=== PATIENT | female | born 1995 | race American Indian/Alaskan Native ===

== ENCOUNTER 2016-07-18 10:15 | Emergency (ER) | payer MEDICAID ==
[2016-07-18 10:29] VITALS: BP 133/70
[2016-07-18] MEDS ORDERED: NACL 0.9% 1000 ML 1,000 ML IV ONE (10:56)
[2016-07-18 11:12] LABS: Basophils % (Auto) 0.3 % (0.0-1.8); Eosinophils % (Auto) 0.7 % (0.0-4.3); Hematocrit 37.5 % (30.3-42.9); Mean Corpuscular HGB Conc 35 % (30-34); Mean Corpuscular Hemoglobin 33 pg (28-32); Mean Corpuscular Volume 94 fl (79-97); Platelet Count 148 K/mm3 (140-440); Red Blood Count 3.98 M/mm3 (3.65-5.03); Red Cell Distribution Width 13.1 % (13.2-15.2); White Blood Count 8.4 K/mm3 (4.5-11.0)
[2016-07-18] MEDS ORDERED: REGLAN IV ONE (11:26)
[2016-07-18] MEDS ORDERED: BENADRYL IV ONE (11:26)
[2016-07-18 11:29] LABS: Bacteria,Urine 3+ /HPF (Negative); Bilirubin,Urine NEG (Negative); Blood,Urine NEG (Negative); Ketones,Urine 20 mg/dL (Negative); Leukocyte Esterase,Urine MOD (Negative); Mucus,Urine 3+ /HPF; Nitrite,Urine NEG (Negative)
[2016-07-18 11:43] LABS: Anion Gap 18 mmol/L; BUN/Creatinine Ratio 16.66; Blood Urea Nitrogen 10 mg/dL (7-17); Carbon Dioxide 22 mmol/L (22-30); Chloride 100.7 mmol/L (98-107); Glucose 89 mg/dL (65-100); Potassium 4.1 mmol/L (3.6-5.0); Sodium 137 mmol/L (137-145)
[2016-07-18 11:47] LABS: Alanine Aminotransferase 13 units/L (7-56); Albumin 3.9 g/dL (3.9-5); Albumin/Globulin Ratio 1.3 %; Alkaline Phosphatase 48 units/L (35-129); Amylase 94 units/L (27-131); Lipase 31 units/L (13-60)
[2016-07-18 11:51] LABS: Bilirubin,Direct < 0.2 mg/dL (0-0.2)
--- NOTE | 2016-07-18 12:44 | Ultrasound Report ---
ULTRASOUND OB LESS THAN 14 WEEKS FETUS HISTORY: Abdominal pain during , cramping. FINDINGS: Transabdominal ultrasound imaging was performed. The uterus measures 17 x 8 x 13 cm. An intrauterine gestational sac containing a pole is identified. Heart rate measures 154 beats per minutes. [place]-rump length measures 76.5 mm which correlates with a 13 week 5 day . Estimated due date of 01/18/17. The placenta is forming anteriorly. No subplacental collection or previa is appreciated. Amniotic fluid volume appears within normal limits. The ovaries are normal size, contour and echotexture. No adnexal cyst or mass. No pelvic fluid collection. Impression: Viable, single intrauterine dated at 13 weeks 5 days. No acute abnormality is detected.
--- NOTE | 2016-07-18 23:20 | Emergency Department Report ---
Entered by EDER AMES, acting as scribe for JAN MOYER PA. ED N/V/D HPI - General Chief complaint: Nausea/Vomiting/Diarrhea Stated complaint: VOMITING/13WKS PREG Time Seen by Provider: 07/18/16 11:19 Source: patient Mode of arrival: Ambulatory Limitations: No Limitations - History of Present Illness Initial comments: 21 year old female that is 13 weeks with no significant PMHx presents to the ED c/o nausea and vomiting that began 2 days ago. Associated symptoms include not being able to tolerate PO food/fluid intake and intermittent lower abdominal cramping, but she denies vaginal discharge, dysuria, and vaginal bleeding. Notes that her last vomiting episode was this morning. She states she consumed water after the episode and vomited the water up as well. Denies having similar symptoms with previous pregnancies. She was seen at [facility] recently and given Phenergan pills for nausea, which she took with no relief. She states she vomited the pills up as well. Notes she had an ultrasound done 1 month ago, which was normal. She states she is high risk due to having previous premature births. LMP 04/18/2016. A2. Denies any alcohol , tobacco, or drug use. NKDA. ALDRIDGE complaint: nausea, vomiting Onset/Timin -: days(s) Description of Vomiting: food contents, watery Associated Abdominal Pain: Yes (intermittent cramping abdominal pain) Location: LLQ, RLQ Radiation: none Severity: moderate Quality: cramping (lower cramping abdominal pain) Consistency: constant Improves with: none (took Phenergan pills with no relief) Worsens with: none Context: other (currently 13 weeks ) Associated Symptoms: denies other symptoms, nausea/vomiting, other ( intermittent lower abdominal cramping pain, but denies vaginal discharge and vaginal bleeding). denies: fever/chills, dysuria - Related Data Home Medications Medication Instructions Recorded Confirmed Last Taken Promethazine [Phenergan TAB] 25 mg PO Q6HR PRN 07/18/16 07/18/16 Unknown Previous Rx's Medication Instructions Recorded Last Taken Type Metoclopramide HCl [Reglan TAB] 5 mg PO Q8H PRN #12 tablet 07/18/16 Unknown Rx Pyridoxine HCl 25 mg PO Q8H PRN #1 bottle 07/18/16 Unknown Rx Allergies Allergy/AdvReac Type Severity Reaction Status Date / Time No Known Allergies Allergy Unverified 07/18/16 10:24 ED Review of Systems Comment: All other systems reviewed and negative Constitutional: no symptoms reported. denies: chills, fever Eyes: denies: eye pain, eye discharge, vision change ENT: denies: ear pain, throat pain Respiratory: denies: cough, shortness of breath, wheezing Cardiovascular: denies: chest pain, palpitations Endocrine: no symptoms reported Gastrointestinal: abdominal pain (intermittent lower abdominal cramping pain), nausea, vomiting. denies: diarrhea Genitourinary: denies: urgency, dysuria, discharge, other (vaginal bleeding) Musculoskeletal: denies: back pain, joint swelling, arthralgia Skin: denies: rash, lesions Neurological: denies: headache, weakness, paresthesias Psychiatric: denies: anxiety, depression Hematological/Lymphatic: denies: easy bleeding, easy bruising ED Past Medical Hx - Past Medical History Previous Medical History?: Yes Additional medical history: vaginal delivery - Surgical History Past Surgical History?: No - Social History Smoking Status: Former Smoker Substance Use Type: Prescribed - Medications Home Medications: Home Medications Medication Instructions Recorded Confirmed Last Taken Type Metoclopramide HCl [Reglan TAB] 5 mg PO Q8H PRN #12 tablet 07/18/16 Unknown Rx Promethazine [Phenergan TAB] 25 mg PO Q6HR PRN 07/18/16 07/18/16 Unknown History Pyridoxine HCl 25 mg PO Q8H PRN #1 bottle 07/18/16 Unknown Rx ED Physical Exam - General Limitations: No Limitations General appearance: alert, in no apparent distress - Head Head exam: Present: atraumatic, normocephalic - Eye Eye exam: Present: normal appearance, EOMI Pupils: Present: normal accommodation - ENT ENT exam: Present: normal exam, mucous membranes moist - Neck Neck exam: Present: normal inspection, full ROM. Absent: tenderness, meningismus, lymphadenopathy - Respiratory Respiratory exam: Present: normal lung sounds bilaterally. Absent: respiratory distress, wheezes, rales, rhonchi, stridor - Cardiovascular Cardiovascular Exam: Present: regular rate, normal rhythm, normal heart sounds - GI/Abdominal GI/Abdominal exam: Present: soft, distended (gravid abdomen), tenderness (LLQ and RLQ), normal bowel sounds. Absent: guarding, rebound, rigid - Extremities Exam Extremities exam: Present: normal inspection, full ROM - Back Exam Back exam: Present: normal inspection, full ROM. Absent: tenderness - Neurological Exam Neurological exam: Present: alert, oriented X3 - Psychiatric Psychiatric exam: Present: normal affect, normal mood - Skin Skin exam: Present: warm, dry, intact. Absent: rash ED Course Vital Signs 07/18/16 10:25 Temperature 98.3 F Pulse Rate 84 Respiratory 20 Rate Blood Pressure 133/70 O2 Sat by Pulse 99 Oximetry ED Medical Decision Making - Lab Data Result diagrams: 07/18/16 10:48 07/18/16 10:48 - Medical Decision Making a/p: nausea and vomiting associated with 1- pt experienced significant relief with reglan, not tolerating po fluid and food without difficulty. 2- pt to f/u with OBGYN 3- rH negative but pt has no current vaginal bleeding, US showed live IUP ED Disposition Clinical Impression: Nausea & vomiting Qualifiers: Vomiting type: unspecified Vomiting Intractability: non-intractable Qualified Code(s): R11.2 - Nausea with vomiting, unspecified Qualifiers: Weeks of gestation: 13 weeks Qualified Code(s): Z3A.13 - 13 weeks gestation of Disposition: DISCHARGED TO HOME OR SELFCARE Is pt being admited?: No Does the pt Need Aspirin: No Condition: Stable Instructions: Morning Sickness (ED), Acute Nausea and Vomiting (ED) Prescriptions: Metoclopramide HCl [Reglan TAB] 5 mg PO Q8H PRN #12 tablet PRN Reason: Nausea Pyridoxine HCl 25 mg PO Q8H PRN #1 bottle PRN Reason: Nausea Referrals: [facility] [Provider Group] - 3-5 Days Time of Disposition: 14:10 This documentation as recorded by the HUI waite JASMINE,accurately reflects the service I personally performed and the decisions made by me,JAN MOYER, PA.
== END 2016-07-18 14:47 | disposition home or self-care (01) ==
LOC: ED 10:15
DX: O21.9 Vomiting of pregnancy, unspecified (principal); R11.0 Nausea; Z3A.13 13 weeks gestation of pregnancy; Z87.891 Personal history of nicotine dependence
CPT/HCPCS: 36415; 76801; 80048; 80074; 81001; 82010; 82150; 82962; 83690; 84600; 84702; 85025; 86850; 86900; 86901; 96361; 96374; 96375; 99284; J1200; J2765; J7030

== ENCOUNTER 2016-11-10 13:23 | Outpatient (CLI) | payer MEDICAID ==
[2016-11-10] MEDS ORDERED: LACTATED RINGERS 500 ML IV ONE (13:27)
[2016-11-10 14:11] VITALS: BP 122/59
[2016-11-10] MEDS ORDERED: BRETHINE SUB-Q ONE (17:00)
== END 2016-11-10 17:45 | disposition home or self-care (01) ==
LOC: TRG 13:23
PROVIDERS: ATTEND Obstetrics & Gynecology
DX: O47.03 False labor before 37 completed weeks of gestation, third trimester (principal); Z3A.29 29 weeks gestation of pregnancy
CPT/HCPCS: 36415; 59025; 82731; 96360; 96372; J3105; J7120

== ENCOUNTER 2016-11-19 15:05 | Emergency (ER) | payer MEDICAID ==
[2016-11-19 15:46] VITALS: BP 130/64
--- NOTE | 2016-11-19 18:40 | Emergency Department Report ---
Chief Complaint: Medical Clearance Stated Complaint: rhogam shot - HPI History of Present Illness: 21-year-old female presents with order for RhoGAM from [facility] [employer] [facility] doctor Jan AKHTAR Review of Systems: Recent - Exam Vital Signs: Vital Signs 11/19/16 15:41 Temperature 9804 F H Pulse Rate 81 Respiratory 16 Rate Blood Pressure 130/64 O2 Sat by Pulse 100 Oximetry Physical Exam: Heart S1-S2 lungs clear to auscultation MSE screening note: Focused history and physical exam performed. Due to findings the following was ordered: Screening Assessment/Plan/Differential Dx: RhoGAM assessment 1- This initial assessment/diagnostic orders/clinical plan/ treatment(s) is/are subject to change based on pt's health status, clinical progression and re- assessment by fellow clinical providers in the ED. Further treatment and workup at subsequent clinical provers discretion. Patient/guardians urged not to elope from ED as their condition may be serious if not clinically assessed and managed. 2-RhoGAM assessment ordered ED Disposition for MSE Condition: Stable Referrals: PRIMARY CARE, [Primary Care Provider] - 3-5 Days
--- NOTE | 2016-11-19 19:57 | Emergency Department Report ---
ED General Adult HPI - General Chief complaint: Medical Clearance Stated complaint: rhogam shot Time Seen by Provider: 11/19/16 19:47 Source: patient Mode of arrival: Ambulatory Limitations: No Limitations - History of Present Illness Initial comments: This is a 21-year-old female nontoxic, well nourished in appearance, no acute signs of distress was inserted to return to emergency room by her [facility] doctor Krupa Montoya for a RhoGAM 300 mcg to be administered. Patient stated she is 30 weeks with normal . Patient was prescribed received a prescription by Dr. Krupa Montoya and indicates "patient is 29 weeks and Rh-. Please of . DaxAM [address] Montoya with questions". Patient denies any vaginal bleeding, fever, chills, nausea, vomiting, chest pain or shortness of breath. Patient denies any symptoms. Denies past medical history or any allergies. MD Complaint: Rh Negative Radiation: non-radiation Severity scale (0 -10): 0 Worsens with: none Associated Symptoms: denies other symptoms. denies: confusion, chest pain, cough, diaphoresis, fever/chills, headaches, loss of appetite, malaise, nausea/ vomiting, rash, seizure, shortness of breath, syncope, weakness Treatments Prior to Arrival: none - Related Data Home Medications Medication Instructions Recorded Confirmed Last Taken Promethazine [Phenergan TAB] 25 mg PO Q6HR PRN 07/18/16 07/18/16 Unknown Previous Rx's Medication Instructions Recorded Last Taken Type Metoclopramide HCl [Reglan TAB] 5 mg PO Q8H PRN #12 tablet 07/18/16 Unknown Rx Pyridoxine HCl 25 mg PO Q8H PRN #1 bottle 07/18/16 Unknown Rx Allergies Allergy/AdvReac Type Severity Reaction Status Date / Time No Known Allergies Allergy Unverified 07/18/16 10:24 ED Review of Systems ROS: Stated complaint: rhogam shot Other details as noted in HPI Constitutional: denies: chills, fever Eyes: denies: eye pain, eye discharge, vision change ENT: denies: ear pain, throat pain Respiratory: denies: cough, shortness of breath, wheezing Cardiovascular: denies: chest pain, palpitations Endocrine: no symptoms reported Gastrointestinal: denies: abdominal pain, nausea, diarrhea Genitourinary: denies: urgency, dysuria, discharge Musculoskeletal: denies: back pain, joint swelling, arthralgia Skin: denies: rash, lesions Neurological: denies: headache, weakness, paresthesias Psychiatric: denies: anxiety, depression Hematological/Lymphatic: denies: easy bleeding, easy bruising ED Past Medical Hx - Past Medical History Hx Hypertension: No Hx Diabetes: No Hx Deep Vein Thrombosis: No Hx Renal Disease: No Hx Sickle Cell Disease: No Hx Seizures: No Hx Asthma: No Hx HIV: No Additional medical history: vaginal delivery - Surgical History Past Surgical History?: No - Social History Smoking Status: Never Smoker Substance Use Type: None - Medications Home Medications: Home Medications Medication Instructions Recorded Confirmed Last Taken Type Metoclopramide HCl [Reglan TAB] 5 mg PO Q8H PRN #12 tablet 07/18/16 Unknown Rx Promethazine [Phenergan TAB] 25 mg PO Q6HR PRN 07/18/16 07/18/16 Unknown History Pyridoxine HCl 25 mg PO Q8H PRN #1 bottle 07/18/16 Unknown Rx ED Physical Exam - General Limitations: No Limitations General appearance: alert, in no apparent distress - Head Head exam: Present: atraumatic, normocephalic, normal inspection - Eye Eye exam: Present: normal appearance, PERRL, EOMI. Absent: scleral icterus, conjunctival injection, nystagmus, periorbital swelling, periorbital tenderness Pupils: Present: normal accommodation - ENT ENT exam: Present: normal exam, normal orophraynx, mucous membranes moist, TM's normal bilaterally, normal external ear exam - Neck Neck exam: Present: normal inspection, full ROM. Absent: tenderness, meningismus, lymphadenopathy, thyromegaly - Respiratory Respiratory exam: Present: normal lung sounds bilaterally. Absent: respiratory distress, wheezes, rales, rhonchi, stridor, chest wall tenderness, accessory muscle use, decreased breath sounds, prolonged expiratory - Cardiovascular Cardiovascular Exam: Present: regular rate, normal rhythm, normal heart sounds. Absent: bradycardia, tachycardia, irregular rhythm, systolic murmur, diastolic murmur, rubs, gallop - GI/Abdominal GI/Abdominal exam: Present: soft, normal bowel sounds - Rectal Rectal exam: Present: deferred - Extremities Exam Extremities exam: Present: normal inspection, full ROM, normal capillary refill. Absent: tenderness, pedal edema, joint swelling, calf tenderness - Back Exam Back exam: Present: normal inspection, full ROM. Absent: tenderness, CVA tenderness (R), CVA tenderness (L), muscle spasm, paraspinal tenderness, vertebral tenderness, rash noted - Neurological Exam Neurological exam: Present: alert, oriented X3, CN II-XII intact, normal gait, reflexes normal - Psychiatric Psychiatric exam: Present: normal affect, normal mood - Skin Skin exam: Present: warm, dry, intact, normal color. Absent: rash ED Course Vital Signs 11/19/16 15:41 Temperature 9804 F H Pulse Rate 81 Respiratory 16 Rate Blood Pressure 130/64 O2 Sat by Pulse 100 Oximetry - Reevaluation(s) Reevaluation #1: 11/19/16 19:56 Patient is speaking in full sentences with no signs of distress noted. ED Medical Decision Making - Medical Decision Making Patient has a prescription by Dr. Andres Montoya and indicates that patient needs RhoGAM 300 g to be administered. Prescription is from the 11/08/2016 and patient states she did not have a ride but does arrive today and so she came in today. Patient denies any symptoms. Blood type has been obtaining ED that indicates patient is Rh-. Critical care attestation.: If time is entered above; I have spent that time in minutes in the direct care of this critically ill patient, excluding procedure time. ED Disposition Clinical Impression: Rh negative status during Qualifiers: Trimester: third trimester Qualified Code(s): O09.893 - Supervision of other high risk pregnancies, third trimester Disposition: DC-01 TO HOME OR SELFCARE Is pt being admited?: No Does the pt Need Aspirin: No Condition: Stable Instructions: Rho(D) Immune Globulin (Injection) Additional Instructions: Follow-up with your [facility] in 3-5 days or if symptoms worsen and continue return to emergency room as soon as possible possible. Referrals: PRIMARY CARE,MD [Primary Care Provider] - 3-5 Days
== END 2016-11-19 20:32 | disposition home or self-care (01) ==
LOC: ED 15:05
DX: O09.893 Supervision of other high risk pregnancies, third trimester (principal); Z3A.30 30 weeks gestation of pregnancy
CPT/HCPCS: 85461; 86850; 86900; 86901; 99282; J2790

== ENCOUNTER 2016-11-27 09:13 | Outpatient (CLI) | payer MEDICAID ==
[2016-11-27] MEDS ORDERED: CELESTONE SOLUSPAN IM ONE (10:30)
== END 2016-11-27 10:30 | disposition home or self-care (01) ==
LOC: TRG 09:13
PROVIDERS: ATTEND Obstetrics & Gynecology
DX: O47.03 False labor before 37 completed weeks of gestation, third trimester (principal); Z3A.31 31 weeks gestation of pregnancy
CPT/HCPCS: 96372; J0702

== ENCOUNTER 2016-11-28 10:44 | Outpatient (CLI) | payer MEDICAID ==
[2016-11-28] MEDS ORDERED: CELESTONE SOLUSPAN IM ONE (11:45)
[2016-11-30 08:56] VITALS: BP 109/53
== END 2016-11-28 11:37 | disposition home or self-care (01) ==
LOC: TRG 10:44
PROVIDERS: ATTEND Obstetrics & Gynecology
DX: O47.03 False labor before 37 completed weeks of gestation, third trimester (principal); Z3A.32 32 weeks gestation of pregnancy
CPT/HCPCS: 96372; J0702

== ENCOUNTER 2016-11-29 12:47 | Inpatient (IN) | payer MEDICAID ==
[2016-11-29] MEDS ORDERED: LACTATED RINGERS 500 ML IV ONE (14:39)
[2016-11-29] MEDS ORDERED: CALCIUM GLUCONATE IV ONE (14:41)
[2016-11-29] MEDS ORDERED: MAGNESIUM SULFATE 4GM/100ML 4 GM/100 ML BAG IV ONE (14:41)
[2016-11-29] MEDS ORDERED: BRETHINE SUB-Q SCH (15:00)
[2016-11-29] MEDS ORDERED: MAGNESIUM SULFATE 40GM/1000ML 40 GM/1,000 ML BAG IV SCH (15:00)
[2016-11-29] MEDS: LACTATED RINGERS 1,000 ML IV SCH (15:50)
[2016-11-29 16:13] LABS: Hematocrit 32.8 % (30.3-42.9); Hemoglobin 11.1 gm/dl (10.1-14.3); Mean Corpuscular HGB Conc 34 % (30-34); Mean Corpuscular Hemoglobin 33 pg (28-32); Mean Corpuscular Volume 98 fl (79-97); Platelet Count 126 K/mm3 (140-440); Red Blood Count 3.33 M/mm3 (3.65-5.03); Red Cell Distribution Width 12.9 % (13.2-15.2)
--- NOTE | 2016-11-29 20:03 | History and Physical Report ---
History of Present Illness Date of examination: 11/29/16 Date of admission: 11/29/16 14:01 Chief complaint: contractions History of present illness: Pt is a 21 year old -[place] female KUSH 01/23/17 at 32w1d who presents with contractions for the past two days increasing in frequency and intensity. She presented to the office with these complaints and was checked and found to be 3/50/-3. She denies vaginal bleeding or leakage of fluid. She has had care at [facility] since 8 wks complicated by h/o at 32 wks, pt refused weekly progesterone injections, contractions on procardia 10 mg TID since 11/08/13; fibronectin on 11/22/16 positive, RH negative status s/p Rhogam, s/p two doses of betamethasone this week on 11/27 and 11/28; GERD on no meds (pt refused), Bilateral pylectasis of the fetus, thrombocytopenia and macrocytosis s/p Hematology referral on . She is GBS unknown. Past History Past Medical History: no pertinent history Past Surgical History: no surgical history [employer] History: chlamydia (remote from this , treated ) Family/Genetic History: diabetes, cancer Social history: no significant social history - Obstetrical History Expected Date of Delivery: 01/23/17 Actual Gestation: 32 Week(s) 1 Day(s) : 5 Para: 2 Hx # Term Pregnancies: 1 Number of Pregnancies: 1 Spontaneous Abortions: 0 Induced : 2 Number of Living Children: 2 Medications and Allergies Allergies Allergy/AdvReac Type Severity Reaction Status Date / Time No Known Allergies Allergy Verified 11/29/16 15:36 Home Medications Medication Instructions Recorded Confirmed Last Taken Type Metoclopramide HCl [Reglan TAB] 5 mg PO Q8H PRN #12 tablet 07/18/16 Unknown Rx Promethazine [Phenergan TAB] 25 mg PO Q6HR PRN 07/18/16 07/18/16 Unknown History Pyridoxine HCl (Vitamin B6) 25 mg PO Q8H PRN #1 bottle 07/18/16 Unknown Rx [Pyridoxine HCl] Active Meds: Active Medications Lactated Ringer's (Lactated Ringers) 1,000 mls @ 125 mls/hr IV DIRECT CINTHYA Last Admin: 11/29/16 15:50 Dose: 125 mls/hr Magnesium Sulfate (Magnesium Sulfate 40gm/1000ml) 40 gm in 1,000 mls @ 25 mls/ hr IV TITR CINTHYA PRN Reason: 1 GM/HR Stop: 11/30/16 14:59 Last Admin: 11/29/16 15:52 Dose: 1 gm/hr, 25 mls/hr Terbutaline Sulfate (Brethine) 0.25 mg SUB-Q Q20MIN CINTHYA Stop: 11/29/16 23:59 Review of Systems All systems: negative - Vital Signs Vital signs: Vital Signs Temp Pulse BP 97.1 F L 77 105/55 11/29/16 14:56 11/29/16 14:56 11/29/16 14:56 Temp Pulse Resp BP Pulse Ox 97.1 F L 70 122/59 97 11/29/16 14:56 11/29/16 20:05 11/29/16 19:58 11/29/16 20:05 - Physical Exam Breasts: Positive: deferred Cardiovascular: Regular rate Lungs: Positive: Clear to auscultation Abdomen: Positive: soft (gravid ) Genitourinary (Female): Positive: normal external genitalia Uterus: Positive: enlarged (gravid ) Extremities: Positive: normal - Obstetrical FHR: auscultation normal Uterine Contraction Monitor Mode: External Cervical Dilatation: 3 (in office) Cervical Effacement Percentage: 50 station: -3 Uterine Contraction Pattern: Irregular Uterine Tone Measurement Phase: Resting Uterine Contraction Intensity: Mild Results Result Diagrams: 11/29/16 15:18 Abnormal lab results 11/29/16 Range/Units 15:18 WBC 18.0 H (4.5-11.0) K/mm3 RBC 3.33 L (3.65-5.03) M/mm3 MCV 98 H (79-97) fl MCH 33 H (28-32) pg RDW 12.9 L (13.2-15.2) % Plt Count 126 L (140-440) K/mm3 Lymph % (Auto) 7.5 L (13.4-35.0) % Weber # 1.1 H (0.0-0.8) K/mm3 Seg Neutrophils % 86.3 H (40.0-70.0) % Seg Neutrophils # 15.6 H (1.8-7.7) K/mm3 All other labs normal. Assessment and Plan A: IUP at 32w1d s/p 2 doses of bemethasone on 11/27 and 11/28 labor bilateral pyelectasis Rh Negative s/p Rhogam Thrombocytopenia GBS unknown P: Admit to antepartum service Magnesium tocolysis CBC, type and screen Closely monitor maternal and status.
[2016-11-29] MEDS ORDERED: COLACE PO PRN (21:29)
[2016-11-29] MEDS ORDERED: ALUM-MAG HYDROX-SIMETH 200-200-20MG/5ML PO PRN (21:29)
[2016-11-29] MEDS ORDERED: MILK OF MAGNESIA PO PRN (21:29)
[2016-11-29] MEDS ORDERED: ROBITUSSIN DM PO PRN (21:29)
[2016-11-29] MEDS ORDERED: DEEP SEA NS PRN (21:29)
[2016-11-29] MEDS ORDERED: ZOFRAN IV PRN (21:29)
[2016-11-29] MEDS ORDERED: BENADRYL PO PRN (21:29)
[2016-11-29] MEDS ORDERED: AMBIEN PO PRN (21:29)
[2016-11-29] MEDS ORDERED: POLYCILLIN/NS 2 GM/100 ML 2 GM/100 ML BAG IV ONE (21:29)
[2016-11-29] MEDS ORDERED: TYLENOL PO PRN (21:29)
[2016-11-29 21:50] LABS: Bilirubin,Urine NEG (Negative); Blood,Urine NEG (Negative); Ketones,Urine 20 mg/dL (Negative); Leukocyte Esterase,Urine NEG (Negative); Mucus,Urine 1+ /HPF; Nitrite,Urine NEG (Negative); Protein,Urine <15 mg/dL mg/dL (Negative)
[2016-11-30] MEDS: LACTATED RINGERS 1,000 ML IV SCH ×2 (00:10→10:33)
[2016-11-30] MEDS ORDERED: POLYCILLIN/NS 2 GM/100 ML 2 GM/100 ML BAG IV ONE (00:34)
[2016-11-30] MEDS: POLYCILLIN/NS 1 GM/50 ML 1 GM/50 ML BAG IV SCH ×5 (05:11→21:19)
[2016-11-30] MEDS: PRENATAL VITAMIN PO SCH (10:15)
--- NOTE | 2016-11-30 10:38 | Consultation ---
History of Present Illness Reason for consult: contractions (Pt is a 21 year old -Pakistani female KUSH 01/23/17 at 32w2d . Patient follow ed by YOGESH for history of PTD , EIF, and VSD ( confirmed by Stefani ) She presented to her OB office for routine OB appt with reports of CTX and pelvic pressure SVE /3. She has had care at [facility] since 8 wks complicated by History PTD following PTL at 32 wks, pt refused weekly progesterone injections, contractions on procardia 10 mg TID since ; fibronectin on 11/22/16 positive, RH negative status s/p Rhogam, s/p two doses of BMZ this week on 11/27 and 11/28; . She is GBS unknown. Patient reports ctx have improved ( irregular and not as strong). Patient denies LOF, ABD, regular cvtx, and VB . 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 (remote from this , treated ) Family/Genetic History: diabetes, cancer - Obstetrical History : 5 Medications and Allergies Allergies Allergy/AdvReac Type Severity Reaction Status Date / Time No Known Allergies Allergy Verified 11/29/16 15:36 Home Medications Medication Instructions Recorded Confirmed Last Taken Type Metoclopramide HCl [Reglan TAB] 5 mg PO Q8H PRN #12 tablet 07/18/16 Unknown Rx Promethazine [Phenergan TAB] 25 mg PO Q6HR PRN 07/18/16 07/18/16 Unknown History Pyridoxine HCl (Vitamin B6) 25 mg PO Q8H PRN #1 bottle 07/18/16 Unknown Rx [Pyridoxine HCl] Active Meds: Active Medications Acetaminophen (Tylenol) 650 mg PO Q4H PRN PRN Reason: Pain MILD(1-3)/Fever >100.5/GUERRERO Al Hydrox/Mg Hydrox/Simethicone (Alum-Mag Hydrox-Simeth [id number]/5ml) 30 ml PO Q6H PRN PRN Reason: Indigestion Diphenhydramine HCl (Benadryl) 25 mg PO Q6H PRN PRN Reason: Itching Docusate Sodium (Colace) 100 mg PO Q12H PRN PRN Reason: Constipation Guaifenesin (Robitussin Dm) 10 ml PO Q6H PRN PRN Reason: Cough Lactated Ringer's (Lactated Ringers) 1,000 mls @ 125 mls/hr IV DIRECT [facility] Last Admin: 11/30/16 00:10 Dose: 125 mls/hr Magnesium Sulfate (Magnesium Sulfate 40gm/1000ml) 40 gm in 1,000 mls @ 25 mls/ hr IV TITR [facility] PRN Reason: 1 GM/HR Stop: 11/30/16 14:59 Last Admin: 11/29/16 15:52 Dose: 1 gm/hr, 25 mls/hr Ampicillin Sodium (Polycillin/Ns 1 Gm/50 Ml) 1 gm in 50 mls @ 100 mls/hr IV Q4HR [facility] PRN Reason: Protocol Last Admin: 11/30/16 10:15 Dose: 100 mls/hr Magnesium Hydroxide (Milk Of Magnesia) 30 ml PO QHS PRN PRN Reason: Laxative Effect Multivitamins/Iron/Calcium ( Vitamin) 1 each PO QDAY [facility] Last Admin: 11/30/16 10:15 Dose: 1 each Ondansetron HCl (Zofran) 4 mg IV Q6H PRN PRN Reason: Nausea And Vomiting Sodium Chloride (Deep Sea) 2 spray NS Q4H PRN PRN Reason: Congestion Zolpidem Tartrate (Ambien) 10 mg PO ONCE PRN PRN Reason: Sleep Review of Systems Constitutional: no fever Eyes: deferred Cardiovascular: no rapid/irregular heart beat, no edema, no syncope, no shortness of breath Respiratory: no shortness of breath Breasts: deferred Gastrointestinal: no vomiting, no diarrhea Genitourinary: contractions (irregular contractions), no vaginal bleeding, no vaginal discharge, no leakage of fluid Rectal Exam: deferred Integumentary: no rash Hematologic/Lymphatic: no easy bruising, no easy bleeding - Vital Signs Vital signs: Vital Signs Temp Pulse BP 97.1 F L 77 105/55 11/29/16 14:56 11/29/16 14:56 11/29/16 14:56 Temp Pulse Resp BP Pulse Ox 98.3 F 68 16 112/53 97 11/30/16 08:00 11/30/16 09:59 11/30/16 08:00 11/30/16 09:59 11/30/16 00:28 - Physical Exam Breasts: Positive: deferred Cardiovascular: Regular rate Lungs: Positive: Normal air movement Abdomen: Negative: tenderness, guarding Genitourinary (Female): Positive: other (+ urine output ) Cervix: Positive: other (reported SVE of 3-4cm ) Uterus: Positive: other (gravid ). Negative: tender - Obstetrical FHR: category 1 Uterine Contraction Monitor Mode: External Uterine Contraction Pattern: Irregular Uterine Contraction Intensity: Mild Results Result Diagrams: 11/29/16 15:18 Abnormal lab results 11/29/16 11/30/16 Range/Units 15:18 07:30 WBC 18.0 H (4.5-11.0) K/mm3 RBC 3.33 L (3.65-5.03) M/mm3 MCV 98 H (79-97) fl MCH 33 H (28-32) pg RDW 12.9 L (13.2-15.2) % Plt Count 126 L (140-440) K/mm3 Lymph % (Auto) 7.5 L (13.4-35.0) % [place] # 1.1 H (0.0-0.8) K/mm3 Seg Neutrophils % 86.3 H (40.0-70.0) % Seg Neutrophils # 15.6 H (1.8-7.7) K/mm3 Magnesium 3.90 H (1.7-2.3) mg/dL All other labs normal. Assessment and Plan A) 1. IUP at 32.2 weeks 2. Irregular contractions improved while on MgSO 3. Advanced cervical dilation 4. History of PTD following PTL at 32 weeks 5. Patient previously declined weekly 17 P 6. Patient was placed on Procardia 7. EIF 8. Previous concern for VSD ( Norton confirmed) 9. MgSO4 in progress 10. S/P BMZ for FLM P) 1. In agreement with inpatient management 2. MgSO4 as per protocol 3. NICU consult 4. Norton to evaluate after 5. Document GBS and FFN status 6. Notify medication administration professional [facility] provider for further concerns _ Dr. Morales
--- NOTE | 2016-11-30 12:28 | Progress Note ---
Assessment and Plan A: IUP at 32w2d s/p 2 doses of bemethasone on 11/27 and 11/28 labor bilateral pyelectasis questionable VSD Rh Negative s/p Rhogam Thrombocytopenia GBS unknown P: Magnesium tocolysis will continue for 48 hrs On Ampicillin s/p MFM consult ( Stefani to follow after delivery) Perinatology consult today Closely monitor maternal and status continue present mgt Subjective - Subjective Date of service: 11/30/16 Principal diagnosis: contractions, advanced dilation Patient reports: movement normal, no new complaints, no loss of fluid, no vaginal bleeding, no contractions Objective - Vital Signs Vital Signs: Vital Signs - 12hr 11/30/16 11/30/16 11/30/16 00:28 08:00 09:59 Temperature 98.3 F Pulse Rate 92 H 71 68 Respiratory 16 Rate Blood Pressure 112/53 Blood Pressure 91/55 [Left] O2 Sat by Pulse 97 Oximetry 11/30/16 11/30/16 10:59 11:59 Temperature Pulse Rate 74 69 Respiratory Rate Blood Pressure 107/56 107/53 Blood Pressure [Left] O2 Sat by Pulse Oximetry - Exam Breasts: normal Cardiovascular: Regular rate, Normal S1 Lungs: Clear to auscultation, Normal air movement Abdomen: Present: normal appearance, soft, normal bowel sounds. Absent: distention, tenderness, guarding Vulva: both: normal Uterus: Present: normal, firm, fundal height above umbilicus. Absent: bogginess FHR: category 1 Uterine Contraction Monitor Mode: External - Labs Labs: Abnormal Labs 11/29/16 11/30/16 15:18 07:30 WBC 18.0 H RBC 3.33 L MCV 98 H MCH 33 H RDW 12.9 L Plt Count 126 L Lymph % (Auto) 7.5 L [place] # 1.1 H Seg Neutrophils % 86.3 H Seg Neutrophils # 15.6 H Magnesium 3.90 H Laboratory Results - last 24 hr 11/29/16 11/29/16 11/29/16 15:18 15:35 21:24 WBC 18.0 H RBC 3.33 L Hgb 11.1 Hct 32.8 MCV 98 H MCH 33 H MCHC 34 RDW 12.9 L Plt Count 126 L Lymph % (Auto) 7.5 L [place] % (Auto) 6.2 Eos % (Auto) 0.0 Baso % (Auto) 0.0 Lymph # 1.3 [place] # 1.1 H Eos # 0.0 Baso # 0.0 Seg Neutrophils % 86.3 H Seg Neutrophils # 15.6 H Magnesium Urine Color Yellow Urine Turbidity Clear Urine pH 6.0 Ur Specific [place] 1.015 Urine Protein <15 mg/dl Urine Glucose (UA) Neg Urine Ketones 20 Urine Blood Neg Urine Nitrite Neg Urine Bilirubin Neg Urine Urobilinogen 2.0 Ur Leukocyte Esterase Neg Urine WBC (Auto) 1.0 Urine RBC (Auto) 2.0 U Epithel Cells (Auto) < 1.0 Urine Mucus 1+ Blood Type B NEGATIVE Antibody Screen TNR ANDERS Antibody Screen Positive Antibody Identification Anti-D (Passively Aquired) 11/30/16 07:30 WBC RBC Hgb Hct MCV MCH MCHC RDW Plt Count Lymph % (Auto) [place] % (Auto) Eos % (Auto) Baso % (Auto) Lymph # [place] # Eos # Baso # Seg Neutrophils % Seg Neutrophils # Magnesium 3.90 H Urine Color Urine Turbidity Urine pH Ur Specific [place] Urine Protein Urine Glucose (UA) Urine Ketones Urine Blood Urine Nitrite Urine Bilirubin Urine Urobilinogen Ur Leukocyte Esterase Urine WBC (Auto) Urine RBC (Auto) U Epithel Cells (Auto) Urine Mucus Blood Type Antibody Screen ANDERS Antibody Screen Antibody Identification
[2016-11-30] MEDS ORDERED: TYLENOL PO PRN (12:38)
[2016-12-01] MEDS: LACTATED RINGERS 1,000 ML IV SCH ×2 (00:53→11:11)
[2016-12-01] MEDS: POLYCILLIN/NS 1 GM/50 ML 1 GM/50 ML BAG IV SCH ×2 (01:48→05:53)
--- NOTE | 2016-12-01 10:12 | Progress Note ---
Assessment and Plan IUP at 32 weeks with labor and advanced dilation. The patient wants to go home.I advised the patient that since her mag was just discontinued,that we would watch her for at least 24 hours and reassess her as to whether or not she had made any cervical change and to see if she could go home. Subjective - Subjective Date of service: 12/01/16 Principal diagnosis: contractions, advanced dilation Interval history: The patient's mag was discontinued this morning. The patient is inquiring as to if she can go home. She states that she has help at home and will be able to stay on bedrest Patient reports: movement normal, no new complaints, no loss of fluid, no vaginal bleeding, no contractions Objective - Vital Signs Vital Signs: Vital Signs - 12hr 11/30/16 11/30/16 11/30/16 22:30 22:32 22:35 Pulse Rate 68 69 70 Blood Pressure 90/48 O2 Sat by Pulse 97 96 Oximetry 11/30/16 11/30/16 11/30/16 22:40 22:45 22:50 Pulse Rate 68 69 70 Blood Pressure O2 Sat by Pulse 96 97 96 Oximetry 11/30/16 11/30/16 11/30/16 22:55 22:59 23:00 Pulse Rate 69 69 68 Blood Pressure 80/43 O2 Sat by Pulse 96 97 Oximetry 11/30/16 11/30/16 11/30/16 23:05 23:10 23:15 Pulse Rate 69 71 71 Blood Pressure O2 Sat by Pulse 96 97 97 Oximetry 11/30/16 11/30/16 11/30/16 23:20 23:25 23:30 Pulse Rate 71 73 69 Blood Pressure O2 Sat by Pulse 97 97 96 Oximetry 11/30/16 11/30/16 11/30/16 23:35 23:40 23:45 Pulse Rate 69 70 84 Blood Pressure O2 Sat by Pulse 97 96 97 Oximetry 11/30/16 11/30/16 11/30/16 23:50 23:55 23:59 Pulse Rate 69 66 64 Blood Pressure 99/54 O2 Sat by Pulse 95 96 Oximetry 12/01/16 12/01/16 12/01/16 00:00 00:05 00:10 Pulse Rate 67 66 65 Blood Pressure O2 Sat by Pulse 96 96 96 Oximetry 12/01/16 12/01/16 12/01/16 00:15 00:20 00:25 Pulse Rate 71 79 71 Blood Pressure O2 Sat by Pulse 96 98 97 Oximetry 12/01/16 12/01/16 12/01/16 00:30 00:35 00:40 Pulse Rate 69 66 66 Blood Pressure O2 Sat by Pulse 97 96 97 Oximetry 12/01/16 12/01/16 12/01/16 00:45 00:50 00:55 Pulse Rate 66 67 66 Blood Pressure O2 Sat by Pulse 96 97 97 Oximetry 12/01/16 12/01/16 12/01/16 00:59 01:00 01:05 Pulse Rate 66 71 69 Blood Pressure 88/51 O2 Sat by Pulse 96 96 Oximetry 12/01/16 12/01/16 12/01/16 01:10 01:15 01:20 Pulse Rate 68 76 68 Blood Pressure O2 Sat by Pulse 97 97 97 Oximetry 12/01/16 12/01/16 12/01/16 01:25 01:30 01:35 Pulse Rate 66 71 66 Blood Pressure O2 Sat by Pulse 97 97 97 Oximetry 12/01/16 12/01/16 12/01/16 01:40 01:45 01:50 Pulse Rate 61 62 67 Blood Pressure O2 Sat by Pulse 97 97 96 Oximetry 12/01/16 12/01/16 12/01/16 01:55 01:59 02:00 Pulse Rate 62 63 68 Blood Pressure 86/46 O2 Sat by Pulse 96 96 Oximetry 12/01/16 12/01/16 12/01/16 02:05 02:10 02:15 Pulse Rate 67 67 64 Blood Pressure O2 Sat by Pulse 96 96 96 Oximetry 12/01/16 12/01/16 12/01/16 02:20 02:25 02:59 Pulse Rate 64 62 65 Blood Pressure 100/55 O2 Sat by Pulse 96 96 Oximetry 12/01/16 12/01/16 12/01/16 03:59 04:59 05:59 Pulse Rate 68 68 72 Blood Pressure 109/54 92/50 85/47 O2 Sat by Pulse Oximetry 12/01/16 12/01/16 12/01/16 06:59 08:00 08:59 Pulse Rate 66 62 65 Blood Pressure 103/57 101/54 106/58 O2 Sat by Pulse Oximetry 12/01/16 10:00 Pulse Rate 65 Blood Pressure 105/55 O2 Sat by Pulse Oximetry - Exam Breasts: deferred Cardiovascular: Regular rate, Normal S1, Normal S2 Lungs: Clear to auscultation, Normal air movement Abdomen: Present: normal appearance, soft, normal bowel sounds Uterus: Present: normal, firm - Labs Labs: Abnormal Labs 11/29/16 11/30/16 11/30/16 15:18 07:30 13:47 WBC 18.0 H RBC 3.33 L MCV 98 H MCH 33 H RDW 12.9 L Plt Count 126 L Lymph % (Auto) 7.5 L [place] # 1.1 H Seg Neutrophils % 86.3 H Seg Neutrophils # 15.6 H Magnesium 3.90 H 3.60 H 11/30/16 12/01/16 18:12 00:16 WBC RBC MCV MCH RDW Plt Count Lymph % (Auto) [place] # Seg Neutrophils % Seg Neutrophils # Magnesium 3.40 H 3.50 H Laboratory Results - last 24 hr 11/30/16 11/30/16 12/01/16 13:47 18:12 00:16 Magnesium 3.60 H 3.40 H 3.50 H
[2016-12-01] MEDS: PRENATAL VITAMIN PO SCH (10:15)
[2016-12-02 08:11] VITALS: BP 107/55
[2016-12-02] MEDS: LACTATED RINGERS 1,000 ML IV SCH (08:33)
[2016-12-02] MEDS: PRENATAL VITAMIN PO SCH (09:54)
--- NOTE | 2016-12-02 15:00 | Progress Note ---
Assessment and Plan IUP at 32+ weeks with advanced dilation. Patient received steroids x2 and magnesium. Since stopping, she has had no regular contractions. Per Dr. Garrido, patient able to be discharged to home on bedrest if stable. As patient has made no cervical change, will plan to discharge on today. Subjective - Subjective Principal diagnosis: contractions, advanced dilation Interval history: The patient's mag was discontinued this yesterday. She has had no further contractions or issues since coming off magnesium. Patient reports: movement normal, no new complaints, no loss of fluid, no vaginal bleeding, no contractions Objective - Vital Signs Vital Signs: Vital Signs - 12hr 12/02/16 12/02/16 12/02/16 06:49 06:54 08:10 Temperature 99.2 F 97.6 F Pulse Rate 79 77 82 Respiratory 14 16 Rate Blood Pressure 101/55 Blood Pressure 101/55 107/55 [Left] O2 Sat by Pulse 98 96 96 Oximetry 12/02/16 12/02/16 08:13 08:15 Temperature Pulse Rate 82 89 Respiratory Rate Blood Pressure 107/55 Blood Pressure [Left] O2 Sat by Pulse 95 Oximetry - Exam Cardiovascular: Regular rate, Normal S1 Lungs: Clear to auscultation, Normal air movement Cervical Dilatation: 2.5 Cervical Effacement Percentage: 50 station: -4 Uterine Contraction Pattern: Absent Uterine Tone Measurement Phase: Resting Extremities: normal - Labs Labs: Abnormal Labs 11/29/16 11/30/16 11/30/16 15:18 07:30 13:47 WBC 18.0 H RBC 3.33 L MCV 98 H MCH 33 H RDW 12.9 L Plt Count 126 L Lymph % (Auto) 7.5 L [place] # 1.1 H Seg Neutrophils % 86.3 H Seg Neutrophils # 15.6 H Magnesium 3.90 H 3.60 H 11/30/16 12/01/16 18:12 00:16 WBC RBC MCV MCH RDW Plt Count Lymph % (Auto) [place] # Seg Neutrophils % Seg Neutrophils # Magnesium 3.40 H 3.50 H
--- NOTE | 2016-12-02 15:02 | Discharge Summary ---
Providers - Providers Date of Admission: 11/30/16 12:47 Date of discharge: 12/02/16 Attending physician: MARI SPIVEY 11/30/16 09:05 Consult to Physician [CONS] Urgent Consulting Provider: KATIE STAPLES Reason For Exam: labor Place consult to:: YOGESH Notified:: called office Was contact made?: Yes 11/30/16 12:31 Consult to Physician [CONS] Routine Consulting Provider: MICA ARGUELLES Reason For Exam: labor Place consult to:: Luis Enrique Phone number called:: [phone] Was contact made?: Yes Primary care physician: KAITLIN PITT MD Hospitalization Reason for admission: labor Hospital course: Patient was treated for labor and stabilized. Condition at discharge: Good Disposition: DC-01 TO HOME OR SELFCARE Plan - Provider Discharge Summary Activity: no sex for 6 weeks, no heavy lifting 4 weeks Diet: routine Instructions: other (bedrest and pelvic rest) Additional instructions: [] Smoking cessation referral if applicable(refer to patient education folder for contact #) [] Refer to [facility]'s [facility] Booklet Call your doctor immediately for: * Fever > 100.5 * Heavy vaginal bleeding ( >1 pad per hour) * Severe persistent headache * Shortness of breath * Reddened, hot, painful area to leg or breast * Drainage or odor from incision. * Keep incision clean and dry at all times and follow doctor's instructions regarding bathing/showering - Follow up plan Follow up: KAITLIN PITT MD [Primary Care Provider] - 7 Days
== END 2016-12-02 16:05 | disposition home or self-care (01) | DRG 781 ==
LOC: LD 12:47 → OBSVTOIN 11-30 12:47
PROVIDERS: ADMIT Obstetrics & Gynecology; ATTEND Obstetrics & Gynecology
DX: O35.9XX0 Maternal care for (suspected) fetal abnormality and damage, unspecified, not applicable or unspecified (principal); O99.013 Anemia complicating pregnancy, third trimester; O60.03 Preterm labor without delivery, third trimester; O99.113 Other diseases of the blood and blood-forming organs and certain disorders involving the immune mechanism complicating pregnancy, third trimester; Z3A.32 32 weeks gestation of pregnancy; D69.6 Thrombocytopenia, unspecified; O99.613 Diseases of the digestive system complicating pregnancy, third trimester; Z67.21 Type B blood, Rh negative; O26.893 Other specified pregnancy related conditions, third trimester; Z31.82 Encounter for Rh incompatibility status
CPT/HCPCS: 36415; 81001; 83735; 85025; 86850; 86870; 86900; 86901; 87116; 96372; G0378; G0379; J0290; J0702; J3475; J7120

== ENCOUNTER 2016-12-15 01:36 | Outpatient (CLI) | payer MEDICAID ==
[2016-12-15 01:46] VITALS: BP 108/62
[2016-12-15] MEDS ORDERED: LACTATED RINGERS 1,000 ML IV SCH (02:15)
== END 2016-12-15 03:29 | disposition home or self-care (01) ==
LOC: TRG 01:36
PROVIDERS: ATTEND Obstetrics & Gynecology
DX: O47.03 False labor before 37 completed weeks of gestation, third trimester (principal); Z3A.34 34 weeks gestation of pregnancy
CPT/HCPCS: 96360

== ENCOUNTER 2017-08-04 10:35 | Emergency (ER) | payer MEDICAID ==
--- NOTE | 2017-08-04 11:23 | Emergency Department Report ---
ED Eye Problem HPI - General Chief complaint: Eye Problems Stated complaint: LEFT EYE INJURY Time Seen by Provider: 08/04/17 11:12 Source: patient Mode of arrival: Ambulatory Limitations: No Limitations - History of Present Illness Initial comments: Beto is a pleasant 22 yo female who presents with recurrent eye redness and irritation. Hx of corneal abrasion last year, treated with ketorolac and ciprofloxacin ophthalmic drops. Followed by opthalmology. has used lubricating drops does not wear contact lens or eye glasses chief complaint: eye pain, eye redness -: Gradual, days(s) (several) Onset Description: gradual Location: left eye If Injury: none - Related Data Home Medications Medication Instructions Recorded Confirmed Last Taken Promethazine [Phenergan TAB] 25 mg PO Q6HR PRN 07/18/16 12/29/16 Unknown Vit-Fe Fumar-FA [ 1 tab PO QDAY 12/29/16 12/29/16 Unknown Vitamin] Previous Rx's Medication Instructions Recorded Last Taken Type HYDROcodone/APAP 5-325 [[place] 1 each PO Q6HR PRN #20 tablet 12/30/16 Unknown Rx 5/325] Ibuprofen Oral Liqd [Motrin Oral 600 mg PO Q6HR PRN #120 oral.liqd 12/30/16 Unknown Rx Liq 100 mg/5 ml] Allergies Allergy/AdvReac Type Severity Reaction Status Date / Time No Known Allergies Allergy Verified 08/04/17 10:37 ED Review of Systems ROS: Stated complaint: LEFT EYE INJURY Other details as noted in HPI Constitutional: denies: fever, malaise Neurological: denies: headache, weakness, numbness, paresthesias, confusion ED Past Medical Hx - Past Medical History Previous Medical History?: No Hx Hypertension: No Hx Congestive Heart Failure: No Hx Diabetes: No Hx Deep Vein Thrombosis: No Hx Renal Disease: No Hx Sickle Cell Disease: No Hx Seizures: No Hx Asthma: No Hx COPD: No Hx HIV: No Additional medical history: vaginal delivery - Surgical History Past Surgical History?: No - Social History Smoking Status: Never Smoker Substance Use Type: None - Medications Home Medications: Home Medications Medication Instructions Recorded Confirmed Last Taken Type Promethazine [Phenergan TAB] 25 mg PO Q6HR PRN 07/18/16 12/29/16 Unknown History Vit-Fe Fumar-FA [ 1 tab PO QDAY 12/29/16 12/29/16 Unknown History Vitamin] HYDROcodone/APAP 5-325 [[place] 1 each PO Q6HR PRN #20 tablet 12/30/16 Unknown Rx 5/325] Ibuprofen Oral Liqd [Motrin Oral 600 mg PO Q6HR PRN #120 oral.liqd 12/30/16 Unknown Rx Liq 100 mg/5 ml] ED Physical Exam - General Limitations: No Limitations General appearance: alert, in no apparent distress - Head Head exam: Present: atraumatic, normocephalic - Eye Eye exam: Present: other (sclera faintly pink no discharge). Absent: PERRL, EOMI, scleral icterus, nystagmus, periorbital swelling, periorbital tenderness - Neurological Exam Neurological exam: Present: alert, altered - Psychiatric Psychiatric exam: Present: normal affect, normal mood ED Course Vital Signs 08/04/17 10:39 Temperature 98.6 F Pulse Rate 72 Respiratory 18 Rate Blood Pressure 127/78 O2 Sat by Pulse 100 Oximetry ED Medical Decision Making - Medical Decision Making recurrent eye irritation every several months, likely allergic conjunctivitis, recommended OTC loratadine and f/u with technology teacher Critical care attestation.: If time is entered above; I have spent that time in minutes in the direct care of this critically ill patient, excluding procedure time. ED Disposition Clinical Impression: Allergic conjunctivitis Disposition: DC-01 TO HOME OR SELFCARE Is pt being admited?: No Does the pt Need Aspirin: No Condition: Stable Instructions: Conjunctivitis (ED) Referrals: CAMRYN ROY MD [Staff Physician] - 3-5 Days Forms: Work/School Release Form(ED) Time of Disposition: 11:23
[2017-08-04 11:35] VITALS: BP 124/70
== END 2017-08-04 11:34 | disposition home or self-care (01) ==
LOC: ED 10:35
DX: H10.12 Acute atopic conjunctivitis, left eye (principal)
CPT/HCPCS: 99282

== ENCOUNTER 2018-07-18 14:09 | Emergency (ER) | payer SELFPAY ==
[2018-07-18] MEDS ORDERED: TYLENOL PO ONE (14:22)
--- NOTE | 2018-07-18 14:22 | Emergency Department Report ---
Blank Doc - Documentation Documentation: subjective fever that began last night no cough +sore throat hurts to swallow no rhinorrhea son was sick last week with virus per pt no PMHx no allergies to medications non smoker non drinker no drug use rapid strep sent from triage given tylenol in triage
--- NOTE | 2018-07-18 15:52 | Emergency Department Report ---
Minor Respiratory - HPI Chief Complaint: Upper Respiratory Infection Stated Complaint: FLU SX Time Seen by Provider: 07/18/18 14:19 Duration: 1 Day Pain Location: Throat, Nose Severity: moderate Minor Respiratory: Yes Rhinorrhea, Yes Sore Throat, Yes Able to Tolerate Fluids, Yes Sick Contacts (son), Yes Chest Pain, Yes Fever, No Ear Pain, No Cough, No Hemoptysis, No Shortness of Breath Other History: This is a 23-year-old -[place] female presents to the emergency room with fever, chills, chest discomfort, and sore throat since yeste rday. Patient states she took TheraFlu yesterday with no improvement of symptoms. Patient states her son was sick over the past 2 weeks but diagnosed with a viral infection. She denies cough, nausea, vomiting, diarrhea, or palpitations. ED Review of Systems ROS: Stated complaint: FLU SX Other details as noted in HPI Constitutional: chills, fever ENT: throat pain, congestion. denies: ear pain, dental pain, hearing loss, epistaxis Respiratory: denies: cough, shortness of breath, wheezing Cardiovascular: denies: chest pain (chest discomfort), palpitations Gastrointestinal: denies: abdominal pain, nausea, diarrhea Musculoskeletal: denies: back pain, joint swelling, arthralgia, myalgia Skin: denies: rash, lesions Neurological: denies: headache, weakness, paresthesias Psychiatric: denies: anxiety, depression ED Past Medical Hx - Past Medical History Hx Hypertension: No Hx Congestive Heart Failure: No Hx Diabetes: No Hx Deep Vein Thrombosis: No Hx Renal Disease: No Hx Sickle Cell Disease: No Hx Seizures: No Hx Asthma: No Hx COPD: No Hx HIV: No Additional medical history: vaginal delivery - Social History Smoking Status: Never Smoker Substance Use Type: None - Medications Home Medications: Home Medications Medication Instructions Recorded Confirmed Last Taken Type Promethazine [Phenergan TAB] 25 mg PO Q6HR PRN 07/18/16 12/29/16 Unknown History Vit-Fe Fumar-FA [ 1 tab PO QDAY 12/29/16 12/29/16 Unknown History Vitamin] HYDROcodone/APAP 5-325 [[place] 1 each PO Q6HR PRN #20 tablet 12/30/16 Unknown Rx 5/325] Ibuprofen Oral Liqd [Motrin Oral 600 mg PO Q6HR PRN #120 oral.liqd 12/30/16 Unknown Rx Liq 100 mg/5 ml] Benzonatate [Tessalon Perles] 100 mg PO Q8HR PRN #30 capsule 07/18/18 Unknown Rx Cetirizine HCl [Zyrtec 10mg tab] 10 mg PO DAILY #30 tablet 07/18/18 Unknown Rx Fluticasone [Flonase] 1 spray NS QDAY #1 bottle 07/18/18 Unknown Rx Minor Respiratory Exam - Exam General: Vital signs noted. No distress. Alert and acting appropriately. HEENT: Yes Pharyngeal Erythema (erythematous posterior pharynx, uvula midline), Yes Moist Mucous Membranes, Yes Rhinorrhea (turbinates mildly congested, clear discharge), No Pharyngeal Exudates, No Conjuctival Injection, No Frontal Tenderness, No Maxillary Tenderness Ear: Neither TM Bulge, Neither TM Erythema, Neither EAC Pain, Neither EAC Discharge Neck: Yes Supple, No Adenopathy Lungs: Yes Good Air Exchange, No Wheezes, No Ronchi, No Stridor, No Cough, No Labored Respirations, No Retractions, No Use of Accessory Muscles, No Other Abnormal Lung Sounds Heart: Yes Regular, No Murmur Abdomen: Yes Normal Bowel Sounds, No Tenderness, No Peritoneal Signs Skin: No Rash, No Edema Neurologic: Alert and oriented, no deficits. Musculoskeletal: Unremarkable. ED Course Vital Signs 07/18/18 14:35 Temperature 102.1 F H Pulse Rate 106 H Respiratory 16 Rate Blood Pressure 127/75 [Left] O2 Sat by Pulse 99 Oximetry Vital Signs 07/18/18 07/18/18 14:35 18:40 Temperature 102.1 F H 100.5 F H Pulse Rate 106 H 86 Respiratory 16 16 Rate Blood Pressure 116/71 Blood Pressure 127/75 [Left] O2 Sat by Pulse 99 99 Oximetry ED Medical Decision Making - Lab Data Lab Results 07/18/18 07/18/18 Range/Units 14:33 16:09 Urine HCG, Qual Negative (Negative) Group A Strep Rapid Negative (Negative) - Radiology Data Radiology results: report reviewed PROCEDURE: XR CHEST ROUTINE 2V TECHNIQUE: PA and lateral chest radiographs were obtained. HISTORY: fever and chest discomfort COMPARISONS: None. FINDINGS: Frontal and lateral views of the chest were acquired. The heart is normal in size. The lungs appear clear. The pleura and mediastinum are within normal limits. IMPRESSION: No active disease in the chest - Medical Decision Making Patient examined by me and stable. No distress noted. Temperature is elevated. Given Tylenol 650 mg by mouth while in the ER. Chest x-ray and rapid strep obtained. Rapid strep negative and chest x-ray negative for acute cardiopulmonary findings. Symptoms are susceptible of viral syndrome. She is instructed to take Tylenol or ibuprofen for aches and pains, to drink a lot of liquids to stay home and rest. Start flonase, Tessalon Perles, cetirizine, and ibuprofen. Discharged home stable. Educated on care for viral syndrome. She was given a note to return to work in 3 days. Follow up with Primary Care Provider in 2-3 days. She will return to the emergency room if he does not get better as discussed. Critical care attestation.: If time is entered above; I have spent that time in minutes in the direct care of this critically ill patient, excluding procedure time. ED Disposition Clinical Impression: Fever and chills, Sore throat, Acute viral syndrome Disposition: DC-01 TO HOME OR SELFCARE Is pt being admited?: No Does the pt Need Aspirin: No Condition: Stable Instructions: Viral Syndrome (ED), Upper Respiratory Infection (ED) Additional Instructions: Symptoms are most likely coming from for infection. These infections typically do not give antibiotics. He is to take ibuprofen every 6 hours alternated with Tylenol every 4 hours pain. You may not feel like eating which is to be expected. Try eating a bland diet as tolerated. Wash hands frequently. F/U with Primary Care Provider. Return to ER if fever, SOB, or difficulty breathing after 48 hours of supportive care. Prescriptions: Fluticasone [Flonase] 1 spray NS QDAY #1 bottle Benzonatate [Tessalon Perles] 100 mg PO Q8HR PRN #30 capsule PRN Reason: Cough Cetirizine HCl [Zyrtec 10mg tab] 10 mg PO DAILY #30 tablet Referrals: [facility] [Outside] - 3-5 Days [facility] [Outside] - 3-5 Days [facility] [Outside] - 3-5 Days Forms: Work/School Release Form(ED) Time of Disposition: 18:49
[2018-07-18 16:43] LABS: HCG Qualitative,Urine Negative (Negative)
--- NOTE | 2018-07-18 17:29 | XRay Report ---
PROCEDURE: XR CHEST ROUTINE 2V TECHNIQUE: PA and lateral chest radiographs were obtained. HISTORY: fever and chest discomfort COMPARISONS: None. FINDINGS: Frontal and lateral views of the chest were acquired. The heart is normal in size. The lung s appear clear. The pleura and mediastinum are within normal limits. IMPRESSION: No active disease in the chest This document is electronically signed by Akash Landis MD., Jul 18 2018 05:27:01 PM ET
[2018-07-18 19:18] VITALS: BP 123/69
== END 2018-07-18 19:18 | disposition home or self-care (01) ==
LOC: ED 14:09
DX: B34.9 Viral infection, unspecified (principal); J02.9 Acute pharyngitis, unspecified; Z79.899 Other long term (current) drug therapy
CPT/HCPCS: 71046; 81025; 87116; 87430